=== PATIENT | female | born 1985 | race Caucasian/White ===

== ENCOUNTER → 2021-06-17 18:21 | Observation (INO) ==
[2021-06-17 16:26] LABS: Amphetamine Screen,Urine Negative ng/mL (Cutoff=1000); Barbiturate Screen,Urine Negative ng/mL (Cutoff=200); Benzodiazepines Screen,Urine Negative ng/mL (Cutoff=200); Cannabinoid Screen,Urine Positive ng/mL (Cutoff = 50); Cocaine Screen,Urine Negative ng/mL (Cutoff= 300); Opiate Screen,Urine Negative ng/mL (Cutoff=300); Phencyclidine Screen,Urine Negative ng/mL (Cutoff=25)
[2021-06-17 16:53] LABS: Varicella Zoster IgG Antibody Positive
[2021-06-17 16:54] LABS: Rubella IgG Antibody POSITIVE (POSITIVE)
[2021-06-17 17:03] LABS: Hepatitis B Surface Antigen Nonreactive (Nonreactive)
[2021-06-17 17:31] LABS: HIV-1&2 Antibody & p24 Ag Nonreactive (Nonreactive)
== END | disposition home or self-care (01) ==
LOC: 1NENULAB
PROVIDERS: ADMIT Obstetrics & Gynecology; ATTEND Obstetrics & Gynecology

== ENCOUNTER 2021-06-23 08:03 | Inpatient (IN) ==
[2021-06-23] MEDS ORDERED: Famotidine 20 MG/2 ML VIAL IVP PRN (08:55)
[2021-06-23] MEDS ORDERED: Lidocaine 1% 20 ML MDV INFILT PRN (08:55)
[2021-06-23] MEDS ORDERED: Penicillin G Potassium 5,000,000 UNIT in 0.9 % Sodium Chloride Mini Bag 100 ML IVPB ONE (08:55)
[2021-06-23] MEDS ORDERED: Naloxone 0.4 MG/ML INJ IVP PRN (08:55)
[2021-06-23] MEDS ORDERED: Metoclopramide 10 MG/2 ML VIAL IVP PRN (08:55)
[2021-06-23] MEDS ORDERED: Ringers Solution, Lactated 1,000 ML IVC SCH (09:00)
[2021-06-23] MEDS ORDERED: Oxytocin 30 UNIT/503 ML BAG IVC SCH ×2 (09:15→20:30)
[2021-06-23 09:18] LABS: Basophils # 0.1 K/mcL (0.0-0.2); Basophils % 0.9 %; Eosinophils # 0.2 K/mcL (0.0-0.6); Eosinophils % 1.6 %; Hematocrit 34.7 % (35.3-44.9); Hemoglobin 11.8 g/dL (11.5-15.4); Immature Granulocytes % 3.3 % (0-4); Lymphocytes # 3.1 K/mcL (0.6-4.6); Lymphocytes % 21.9 %; Mean Corpuscular Hemoglobin 31.7 pg (28.0-33.3); Mean Corpuscular Volume 93.3 fL (83.0-100.0); Mean Platelet Volume 9.6 fL (9.4-12.4); Monocytes # 1.1 K/mcL (0.0-1.3); Monocytes % 7.9 %; Neutrophils # 9.1 K/mcL (1.6-8.9); Platelet Count 318 K/mcL (140-400); Red Blood Count 3.72 M/mcL (3.82-4.97); Red Cell Distribution Width 14.3 % (11.5-14.5); Segmented Neutrophils % 64.4 %; White Blood Count 14.1 K/mcL (4.3-11.1)
[2021-06-23 09:29] LABS: Amphetamine Screen,Urine Negative ng/mL (Cutoff=1000); Barbiturate Screen,Urine Negative ng/mL (Cutoff=200); Benzodiazepines Screen,Urine Negative ng/mL (Cutoff=200); Cannabinoid Screen,Urine Positive ng/mL (Cutoff = 50); Cocaine Screen,Urine Negative ng/mL (Cutoff= 300); Opiate Screen,Urine Negative ng/mL (Cutoff=300); Phencyclidine Screen,Urine Negative ng/mL (Cutoff=25)
[2021-06-23 09:55] LABS: Influenza A PCR Negative (Negative); Influenza B PCR Negative (Negative); Resp. Syncytial Virus PCR Negative (Negative); SARS-CoV-2 by PCR (In House) Negative (Negative)
[2021-06-23] MEDS ORDERED: *HR* FentaNYL (PF) 100 MCG/2 ML VIAL EP ONE (09:59)
[2021-06-23] MEDS ORDERED: EPHEDrine 50 MG/ML VIAL IVP PRN (09:59)
[2021-06-23] MEDS ORDERED: Ropivacaine/PF 0.2% 20 ML VIAL EP ONE (09:59)
[2021-06-23] MEDS ORDERED: Epidural Premix (fent/bupiv) 110 ML EP SCH (10:00)
[2021-06-23] MEDS ORDERED: *HR* FentaNYL (PF) 100 MCG/2 ML VIAL ONE (11:16)
[2021-06-23] MEDS ORDERED: Ropivacaine/PF 0.2% 20 ML VIAL ONE (11:16)
[2021-06-23] MEDS ORDERED: Penicillin G Potassium 2,500,000 UNIT/105 ML MLS IVPB SCH (13:00)
[2021-06-23] MEDS ORDERED: Lanolin 7 G OINT...G. TP PRN (18:57)
[2021-06-23] MEDS ORDERED: Ondansetron ODT 4 MG TAB.RAPDIS SL PRN (18:57)
[2021-06-23] MEDS ORDERED: Benzocaine/Menthol 56 GM AEROSOL SPRAY TP PRN (18:57)
[2021-06-23] MEDS ORDERED: Measles/Mumps/Rubella Vacc 0.5 ML VIAL SQ PRN (18:57)
[2021-06-23] MEDS: Ibuprofen 600 MG TABLET PO SCH (19:45)
[2021-06-23] MEDS: Acetaminophen 325 MG TABLET PO SCH (19:46)
[2021-06-23] MEDS ORDERED: Nicotine 21 MG PATCH.TD24 TD SCH (20:00)
[2021-06-24] MEDS: Acetaminophen 325 MG TABLET PO SCH ×3 (05:15→17:08)
[2021-06-24] MEDS: Ibuprofen 600 MG TABLET PO SCH ×3 (05:15→17:07)
[2021-06-24 06:34] LABS: Basophils # 0.1 K/mcL (0.0-0.2); Basophils % 0.6 %; Eosinophils # 0.3 K/mcL (0.0-0.6); Eosinophils % 1.9 %; Hematocrit 30.1 % (35.3-44.9); Hemoglobin 10.5 g/dL (11.5-15.4); Immature Granulocytes % 1.8 % (0-4); Lymphocytes # 3.9 K/mcL (0.6-4.6); Lymphocytes % 25.6 %; Mean Corpuscular HGB Conc 34.9 g/dL (31.6-35.5); Mean Corpuscular Hemoglobin 32.4 pg (28.0-33.3); Mean Corpuscular Volume 92.9 fL (83.0-100.0); Mean Platelet Volume 9.8 fL (9.4-12.4); Monocytes % 6.9 %; Neutrophils # 9.5 K/mcL (1.6-8.9); Platelet Count 255 K/mcL (140-400); Red Blood Count 3.24 M/mcL (3.82-4.97); Red Cell Distribution Width 14.2 % (11.5-14.5); Segmented Neutrophils % 63.2 %; White Blood Count 15.1 K/mcL (4.3-11.1)
[2021-06-24] MEDS: Prenatal Vit/FA 1 EACH TABLET PO SCH (08:36)
[2021-06-25] MEDS: Acetaminophen 325 MG TABLET PO SCH (02:56)
[2021-06-25] MEDS: Ibuprofen 600 MG TABLET PO SCH ×2 (02:56→09:11)
[2021-06-25 06:57] VITALS: BP 116/78; PULSE 98; TEMP 97.4; O2SAT 99
[2021-06-25] MEDS: Prenatal Vit/FA 1 EACH TABLET PO SCH (09:11)
== END 2021-06-25 10:57 | disposition home or self-care (01) | DRG 560 ==
LOC: 1NENULAB 08:03 → 1NENUOBS 18:35
PROVIDERS: ADMIT Obstetrics & Gynecology; ATTEND Obstetrics & Gynecology